=== PATIENT | female | born 1990 | race American Indian/Alaskan Native ===

== ENCOUNTER 2022-02-07 17:03 | Emergency (ER) | payer SELFPAY ==
--- NOTE | 2022-02-07 18:38 | XRay Report ---
LEFT SHOULDER, 2 VIEWS INDICATION / CLINICAL INFORMATION: left shoulder injury. COMPARISON: None available. FINDINGS: The humeral head is located anterior to the scapula consistent with anterior dislocation of the gleno humeral joint. No definite fracture is noted. AC joint alignment is maintained. Visualized left ribs are intact. IMPRESSION: Anterior dislocation of the glenohumeral joint. Signer Name: Ailyn Allison MD Signed: 02/07/2022 6:34 PM Workstation Name: [id number]
[2022-02-07] MEDS ORDERED: KETOROLAC 30 MG/1 ML INJ IV ONE (20:06)
[2022-02-07] MEDS ORDERED: ONDANSETRON 4 MG/2 ML INJ IV ONE (20:06)
[2022-02-07] MEDS ORDERED: fentaNYL 100 MCG/2 ML INJ IV ONE (20:06)
[2022-02-07] MEDS ORDERED: propofoL 200 MG/20 ML VIAL IV ONE (20:07)
[2022-02-07] MEDS ORDERED: SODIUM CHLORIDE 0.9% 500 ML 500 ML IV ONE (20:07)
[2022-02-07] MEDS ORDERED: KETAMINE 500 MG/5 ML VIAL MDV IV ONE (20:07)
--- NOTE | 2022-02-07 20:26 | Emergency Department Report ---
ED Upper Extremity Inj HPI - General Chief Complaint: Shoulder Injury Stated Complaint: SHOULDER INJURY Time Seen by Provider: 02/07/22 20:01 Source: patient Mode of arrival: Ambulatory Limitations: No Limitations - History of Present Illness Initial Comments: 31-year-old [id number] female no significant past medical history presents to the hospital complaining of left shoulder pain. Patient fell while playing kickball. She injured her left shoulder and presents with left with deformity, 10/10 pain, and limited range of motion. Patient also presents with left knee abrasion but is able to bear weight and ambulate without difficulty. No other injury reported. No previous history of shoulder dislocations. Patient has been exposed to anesthesia before and denies adverse reaction - Related Data Previous Rx's Medication Instructions Recorded Last Taken Type Ibuprofen [Motrin] 800 mg PO Q8HR PRN #20 tablet 02/07/22 Unknown Rx Allergies Allergy/AdvReac Type Severity Reaction Status Date / Time No Known Allergies Allergy Unverified 02/07/22 18:03 ED Review of Systems ROS: Stated complaint: SHOULDER INJURY Other details as noted in HPI Comment: All other systems reviewed and negative ED Past Medical Hx - Past Medical History Previous Medical History?: No - Surgical History Past Surgical History?: No - Social History Smoking Status: Never Smoker Substance Use Type: Alcohol, Marijuana - Medications Home Medications: Home Medications Medication Instructions Recorded Confirmed Last Taken Type Ibuprofen [Motrin] 800 mg PO Q8HR PRN #20 tablet 02/07/22 Unknown Rx ED Physical Exam - General Limitations: No Limitations - Other Other exam information: General: No acute distress Head: Atraumatic Eyes: normal appearance ENT: Moist mucous membranes Neck: Normal appearance, no midline tenderness Chest: Clear to auscultation bilaterally CV: Regular rate and rhythm Abdomen: Soft, normal bowel sounds, nontender, nondistended, no rebound or guarding Back: Normal inspection Extremity: Left shoulder held abducted and internally rotated with deformity noted at shoulder joint. Sensation to deltoid and forearm intact. Abrasion to left anterior knee. Able to flex 90 degrees, able to bear weight, no isolated fibular tenderness. Mild tenderness at patellar area of abrasion Neuro: Alert O x 3, no facial asymmetry, speech clear, no gross motor sensory deficit Psych: Appropriate behavior Skin: No rash ED Course Vital Signs 07/03/22 07/03/22 07/03/22 18:00 19:35 19:42 Temperature 97.7 F Temperature [ Post-Procedure] Pulse Rate 115 H Pulse Rate [ Intra-Procedure ] Pulse Rate [ Post-Procedure] Respiratory 20 21 Rate Respiratory Rate [Intra- Procedure] Respiratory Rate [Post- Procedure] Blood Pressure Blood Pressure [Intra- Procedure] Blood Pressure [Post-Procedure ] Blood Pressure 138/99 [Right] O2 Sat by Pulse 100 100 100 Oximetry 02/07/22 02/07/22 02/07/22 19:44 19:45 20:00 Temperature 98.6 F Temperature [ Post-Procedure] Pulse Rate 104 H 97 H 94 H Pulse Rate [ Intra-Procedure ] Pulse Rate [ Post-Procedure] Respiratory 24 18 19 Rate Respiratory Rate [Intra- Procedure] Respiratory Rate [Post- Procedure] Blood Pressure 143/101 143/101 149/106 Blood Pressure [Intra- Procedure] Blood Pressure [Post-Procedure ] Blood Pressure [Right] O2 Sat by Pulse 100 100 100 Oximetry 02/07/22 02/07/22 02/07/22 20:16 20:20 20:30 Temperature Temperature [ Post-Procedure] Pulse Rate 91 H 91 H Pulse Rate [ Intra-Procedure ] Pulse Rate [ Post-Procedure] Respiratory 16 22 20 Rate Respiratory Rate [Intra- Procedure] Respiratory Rate [Post- Procedure] Blood Pressure 117/84 142/79 Blood Pressure [Intra- Procedure] Blood Pressure [Post-Procedure ] Blood Pressure [Right] O2 Sat by Pulse 100 100 Oximetry 02/07/22 02/07/22 02/07/22 20:45 20:46 21:00 Temperature Temperature [ 98.6 F Post-Procedure] Pulse Rate 94 H Pulse Rate [ 102 H Intra-Procedure ] Pulse Rate [ 101 H Post-Procedure] Respiratory 23 Rate Respiratory 24 Rate [Intra- Procedure] Respiratory 22 Rate [Post- Procedure] Blood Pressure 143/93 143/94 Blood Pressure 141/93 [Intra- Procedure] Blood Pressure 143/94 [Post-Procedure ] Blood Pressure [Right] O2 Sat by Pulse 99 100 Oximetry 02/07/22 21:29 Temperature Temperature [ Post-Procedure] Pulse Rate 112 H Pulse Rate [ Intra-Procedure ] Pulse Rate [ Post-Procedure] Respiratory 18 Rate Respiratory Rate [Intra- Procedure] Respiratory Rate [Post- Procedure] Blood Pressure Blood Pressure [Intra- Procedure] Blood Pressure [Post-Procedure ] Blood Pressure [Right] O2 Sat by Pulse Oximetry - Moderate Sedation Indications: fracture/dislocation redu ASA Class: I Mallampati Airway Score: 1 Preparation: equipment monitor phototypesetting applied, pulse oximeter, capnometry used, supplemental O2 applied, suction/airway equipment at bedside, IV secured Ketamine: IV Ketamine Dose: 35 IV Propofol Dose (mgs): 35 Complications: none Interventions: oxygen applied Patient Tolerated Procedure: well, no complications - Orthopedic Joint Reduction Joint #1 Consent Obtained: written consent Time Out Performed: Yes Side: left Joint Reduction Location: shoulder Analgesia: moderate sedation Shoulder Technique Used (if applicable): external rotation Technique Used: traction/counter-traction Post-Reduction Neuro Exam: intact Post-Reduction Vascular Exam: intact Post Reduction X-Ray Obtained: Yes Post Reduction X-Ray Results: reduced Splint Applied: Yes Patient Tolerated Procedure: well Additional Comments: procedure start time 8:45 pm stop time 8:52 pm ED Medical Decision Making - Radiology Data Radiology results: report reviewed LEFT SHOULDER, 2 VIEWS INDICATION / CLINICAL INFORMATION: left shoulder injury. COMPARISON: None available. FINDINGS: The humeral head is located anterior to the scapula consistent with anterior dislocation of the glenohumeral joint. No definite fracture is noted. AC joint alignment is maintained. Visualized left ribs are intact. IMPRESSION: Anterior dislocation of the glenohumeral joint. Single view left shoulder 8:57 PM INDICATION: Status post reduction FINDINGS: Comparison is made with exam from earlier today. There has been interval reduction of the previously seen shoulder dislocation. No displaced fracture is identified. CONCLUSION: Satisfactory postreduction appearance. - Medical Decision Making 31-year-old female who presents to the hospital with left shoulder dislocation after fall while playing kickball. Neurovascularly intact before and after shoulder reduction. Patient received conscious sedation. Alert and at baseline with a steady gait at time of discharge - Differential Diagnosis Fracture, dislocation Critical Care Time: No Critical care attestation.: If time is entered above; I have spent that time in minutes in the direct care of this critically ill patient, excluding procedure time. ED Disposition Clinical Impression: Dislocation of shoulder, left, closed Disposition: 01 HOME / SELF CARE / HOMELESS Is pt being admited?: No Does the pt Need Aspirin: No Condition: Stable Instructions: Shoulder Dislocation, How to Use a Shoulder Immobilizer, Moderate Conscious Sedation, Adult, Care After Additional Instructions: Take the medication as prescribed. Follow-up with the orthopedic doctor of your choice or one of the orthopedic doctors provided. Return if symptoms worsen as indicated by your discharge instructions. Prescriptions: Ibuprofen [Motrin] 800 mg PO Q8HR PRN #20 tablet PRN Reason: Pain , Severe (7-10) Referrals: AJ WILKINS MD [Staff Physician] - 3-5 Days [facility] [Provider Group] - 3-5 Days Time of Disposition: 21:44
--- NOTE | 2022-02-07 21:29 | XRay Report ---
Single view left shoulder 8:57 PM INDICATION: Status post reduction FINDINGS: Comparison is made with exam from earlier today. There has been interval reduction of the previously seen shoulder dislocation. No displaced fracture is identified. CONCLUSION: Satisfactory postreduction appearance. Signer Name: Delonte Scruggs MD Signed: 02/07/2022 9:24 PM Workstation Name: [id number]
[2022-02-07 22:45] VITALS: BP 140/78
== END 2022-02-07 22:46 | disposition home or self-care (01) ==
LOC: ED 17:03
DX: S43.085A Other dislocation of left shoulder joint, initial encounter (principal); F12.90 Cannabis use, unspecified, uncomplicated; Z72.89 Other problems related to lifestyle; Z79.899 Other long term (current) drug therapy; X50.1XXA Overexertion from prolonged static or awkward postures, initial encounter; Y93.6A Activity, physical games generally associated with school recess, summer camp and children; Y92.89 Other specified places as the place of occurrence of the external cause; Y99.8 Other external cause status
CPT/HCPCS: 23650; 73020; 73030; 96374; 96375; 99284; J1885; J2405; J2704; J3010; J3490; J7040